=== PATIENT | female | born 1970 | race Caucasian/White ===

== ENCOUNTER 2019-09-24 13:08 | Emergency (ER) | payer MEDICAID ==
[~2019-09-24] VITALS: Ht 154.9 cm; Wt 83.9 kg
[2019-09-24 13:10] VITALS: Ht 154.9 cm; Wt 83.9 kg
[2019-09-24 13:52] VITALS: BP 142/87
== END 2019-09-24 13:52 | disposition home or self-care (01) ==
LOC: ED 13:08
DX: R50.9 Fever, unspecified (principal); R51 Headache; M79.10 Myalgia, unspecified site; Z20.828 Contact with and (suspected) exposure to other viral communicable diseases
CPT/HCPCS: U0003-CS